=== PATIENT | male | born 1950 | race Native Hawaiian/Other Pacific Islander ===

== ENCOUNTER 2017-11-29 06:58 | Day surgery (SDC) | payer MEDICARE, MEDICAID ==
[~2017-11-29 06:58] MED LIST: ceFAZolin IV 1 gm in Dextrose 1 GM/50 ML BAG IVPB ONE
[2017-11-29] MEDS ORDERED: Oxymetazoline 0.05% Nasal Spray (30 ml) NS ONE (06:59)
[2017-11-29] MEDS ORDERED: Lidocaine/Epinephrine 1% 1:100000 10 ML IJ ONE (06:59)
[2017-11-29] MEDS ORDERED: Acetaminophen-Codeine 300/30 mg Tab PO PRN (08:27)
[2017-11-29] MEDS ORDERED: Dextrose 5%/0.45% NS 1,000 ML IV SCH (08:30)
[2017-11-29] MEDS ORDERED: Propofol 10 mg/ml Inj (20 ML) ONE (08:42)
[2017-11-29] MEDS ORDERED: Midazolam 2 MG/2 ML VIAL ONE (08:43)
[2017-11-29] MEDS ORDERED: HYDROmorphone 0.5 mg/0.5 ml ISec IVP PRN (09:52)
[2017-11-29 11:01] VITALS: TEMP 98
[2017-11-29 11:28] VITALS: BP 157/88; PULSE 77; RESP 18; O2SAT 100
--- NOTE | 2017-11-29 20:21 | OP ---
PROCEDURE DATE: 11/29/2017 PREOPERATIVE DIAGNOSES: Deviated septum, enlarged turbinates. POSTOPERATIVE DIAGNOSES: Deviated septum, enlarged turbinates. PROCEDURE: Septoplasty, endoscopic bilateral inferior turbinate submucosal reduction. SIGNIFICANT FINDINGS: Deviated septum, large inferior turbinates. DESCRIPTION OF PROCEDURE: The patient was brought into the room, placed in supine position. Anesthesia was initiated through an ET tube. Shoulder roll was placed. The patient was draped in usual manner. Adrenaline-soaked pledgets were inserted into nasal cavity, it remained there for at least five minutes and removed. The patient was draped in usual manner. The septum was injected on both sides with lidocaine with epinephrine. Hemitransfixion incision was made on the left and mucoperichondrial flap was raised. A vertical incision was made in the cartilage leaving a 1.5 cm anterior and superior strut, and a mucoperichondrial flap was raised on the other side. Deviated portion of the septum was removed. A quilting suture was used to suture the two flaps together and close the hemitransfixion incision. A 0-degree scope was inserted into the nasal cavity. The inferior turbinates were noted to be enlarged and reduced in size, going from an anterior to posterior, inferior to superior direction, first on the left, then on the right using scissors. Bleeding was controlled using suction cautery on both sides. Stents were placed. The patient was taken off anesthesia and taken to recovery room in stable manner. John Lyons MD
== END 2017-11-29 11:43 | disposition home or self-care (01) ==
LOC: C.SDS 06:58
PROVIDERS: ATTEND Otolaryngology
DX: J34.2 Deviated nasal septum (principal); J34.3 Hypertrophy of nasal turbinates
CPT/HCPCS: 30140; 30520; 88304; J0690; J2250; J2704; J3010